=== PATIENT | female | born 1990 | race Caucasian/White ===

== ENCOUNTER 2018-01-19 11:58 | Emergency (ER) | payer OTHER ==
[~2018-01-19] VITALS: Ht 165.1 cm; Wt 68.0 kg
[~2018-01-19 11:58] MED LIST: ACEASPCAF PO; AMOX500 PO; CELEXA; CEPH500 PO; DOXY100T53 PO; HYDACE10B PO; HYDMOR2 PO; IBUP800 PO; LEVSOD25 PO; METR500 PO; MULVITMINE PO; NITR100CA PO; OXYACE5T PO; PROM25 PO; RXHYDACE PO; RXHYDMOR2 PO; RXOXYACE PO; RXPROM25 PO; SPIR25 PO; TRAM50 PO; XANAX
[2018-01-19] MEDS ORDERED: ALPR.5 PO (12:17)
[2018-01-19 12:39] LABS: Source, Urine Clean Catch
[2018-01-19 13:05] LABS: Bilirubin, Urine Neg (Neg); Blood, Urine 5+ (Neg); Glucose Qualitative, Urine Neg (Neg); Ketones, Urine Neg (Neg); Leukocyte Esterase, Urine 1+ (Neg); Nitrite, Urine Neg (Neg); Protein, Urine Neg (Neg); Urobilinogen, Urine NORM (Normal)
[2018-01-19 13:14] LABS: BASOPHILS ABSOLUTE AUTO 0.04 K/mm3 (0.00-0.23); BASOPHILS PERCENT AUTO 0 % (0-2); EOSINOPHILS ABSOLUTE AUTO 0.06 K/mm3 (0.00-0.68); EOSINOPHILS PERCENT AUTO 1 % (0-6); Hematocrit 38.9 % (33.0-51.0); Hemoglobin 12.3 g/dL (11.5-16.0); IMMATURE GRAN ABSOLUTE AUTO 0.03 K/mm3 (0.00-0.10); IMMATURE GRAN PERCENT AUTO 0 % (0-1); LYMPHOCYTES ABSOLUTE AUTO 1.53 K/mm3 (0.84-5.20); LYMPHOCYTES PERCENT AUTO 17 % (21-46); MONOCYTES ABSOLUTE AUTO 0.66 K/mm3 (0.16-1.47); MONOCYTES PERCENT AUTO 7 % (4-13); Mean Corpuscular HGB 28.8 pg (26.0-34.0); Mean Corpuscular HGB Conc 31.6 g/dL (31.5-36.5); Mean Corpuscular Volume 91 fL (80-100); Mean Platelet Volume 9.3 fL (9.1-12.4); NEUTROPHILS ABSOLUTE AUTO 6.83 K/mm3 (1.96-9.15); NEUTROPHILS PERCENT AUTO 75 % (41-73); Platelet Count 285 K/mm3 (150-400); RDW Coefficient Variation 14.4 % (11.7-14.2); RDW Standard Deviation 48.4 fL (35.1-46.3); Red Blood Cell Count 4.27 M/mm3 (3.80-5.20); White Blood Cell Count 9.15 K/mm3 (4.00-11.30)
[2018-01-19 13:25] LABS: Appearance, Urine Hazy (Clear); Color, Urine Yellow (P-Yellow)
[2018-01-19 13:27] LABS: Bacteria Few /hpf; Squamous Epithelial Cells Few /hpf (Few)
[2018-01-19 13:42] LABS: Alanine Aminotransfer (ALT/SGP 21 U/L (12-78); Albumin, Blood 3.8 g/dL (3.4-5.0); Alk Phos 55 U/L (50-136); Anion Gap 7 mmol/L (6-16); Aspartate Aminotrans (AST/SGOT 16 U/L (12-37); Beta HCG, Quantitative, Serum 395 mIU/mL (0-3); Bilirubin, Total 0.3 mg/dL (0.1-1.0); Blood Urea Nitrogen 7 mg/dL (8-24); Bun/Creatinine Ratio 14.3 (12.0-20.0); CO2, Blood 26 mmol/L (21-32); Calcium, Blood 8.5 mg/dL (8.5-10.1); Chloride, Blood 107 mmol/L (98-108); Creatinine, Blood 0.49 mg/dL (0.40-1.00); Glomerular Filtration Rate >60 (60-); Glucose, Blood 97 mg/dL (70-99); Potassium, Blood 3.8 mmol/L (3.5-5.5); Sodium, Blood 140 mmol/L (136-145); Total Protein, Blood 7.8 g/dL (6.4-8.2)
[2018-01-19] MEDS ORDERED: Macrodantin100 MG PO (15:07)
== END 2018-01-19 15:21 | disposition home or self-care (01) ==
LOC: ER 11:58
PROVIDERS: Emergency Medicine
DX: O23.41 Unspecified infection of urinary tract in pregnancy, first trimester (principal); O99.341 Other mental disorders complicating pregnancy, first trimester; F41.9 Anxiety disorder, unspecified; Z79.899 Other long term (current) drug therapy; Z87.891 Personal history of nicotine dependence; Z3A.01 Less than 8 weeks gestation of pregnancy
CPT/HCPCS: 36415; 76801; 80053; 81001; 84702; 85025; 86900; 86901; 87086; 99284

== ENCOUNTER 2018-02-08 18:57 | Emergency (ER) | payer OTHER ==
[~2018-02-08] VITALS: Ht 165.1 cm; Wt 65.8 kg
[~2018-02-08 18:57] MED LIST changes: +ALPR.5 PO; +Macrodantin100 MG PO
== END 2018-02-08 20:51 | disposition home or self-care (01) ==
LOC: ER 18:57
DX: B34.9 Viral infection, unspecified (principal); F17.210 Nicotine dependence, cigarettes, uncomplicated
CPT/HCPCS: 99282

== ENCOUNTER 2018-04-27 12:28 | Emergency (ER) | payer OTHER ==
[~2018-04-27] VITALS: Ht 165.1 cm; Wt 65.8 kg
[2018-04-27 14:13] LABS: Source, Urine Clean Catch
[2018-04-27 14:20] LABS: Chloride (POC) 103 mmol/L (98-108); Creatinine (POC) 0.5 mg/dL (0.6-1.0); Glucose (ISTAT POC) 104 mg/dL (70-99); Hemoglobin (POC) 12.9 g/dL (12.0-16.0); Potassium (POC) 3.6 mmol/L (3.5-5.5); Sodium (POC) 141 mmol/L (135-148); Total CO2 (POC) 26 mmol/L (21-32)
[2018-04-27 14:22] LABS: Bilirubin, Urine Neg (Neg); Blood, Urine Neg (Neg); Glucose Qualitative, Urine Neg (Neg); Ketones, Urine Neg (Neg); Leukocyte Esterase, Urine 2+ (Neg); Nitrite, Urine Neg (Neg); Protein, Urine Neg (Neg); Specific Gravity, Urine 1.015 (1.003-1.022); Urobilinogen, Urine NORM (Normal)
[2018-04-27 14:41] LABS: Appearance, Urine Hazy (Clear); Color, Urine Yellow (P-Yellow)
[2018-04-27 14:42] LABS: Red Blood Cells, Urine 0-2 /hpf (0-2)
[2018-04-27 14:43] LABS: Amorphous Light (0-Heavy); Bacteria Mod /hpf; Squamous Epithelial Cells Mod /hpf (Few)
[2018-04-27] MEDS ORDERED: Sudogest60 MG PO (15:22)
[2018-04-27] MEDS ORDERED: PROM25 PO (15:22)
== END 2018-04-27 15:37 | disposition home or self-care (01) ==
LOC: ER 12:28
PROVIDERS: Physician Assistant
DX: R11.2 Nausea with vomiting, unspecified (principal); R19.7 Diarrhea, unspecified; J32.9 Chronic sinusitis, unspecified; Z87.891 Personal history of nicotine dependence
CPT/HCPCS: 36415; 80047; 81001; 81025; 85014; 87086; 96361; 96374; 99283; J2550; J7120

== ENCOUNTER → 2019-10-28 | Outpatient (CLI) | payer OTHER ==
[~2019-10-28] MED LIST changes: +METR59TL; +PRENATAL TABLE1 EAC2 PO; +Sudogest60 MG PO
[2019-10-31 05:07] LABS: CHLAMYDIA TRACHOMATIS, NAA Negative (Negative); NEISSERIA GONORRHOEAE, NAA Negative (Negative)
== END | disposition home or self-care (01) ==
LOC: LAB 15:10 → LAB SHORT 15:10
PROVIDERS: Advanced Practice Midwife
DX: Z11.3 Encounter for screening for infections with a predominantly sexual mode of transmission (principal)
CPT/HCPCS: 87491; 87591

== ENCOUNTER 2019-11-12 17:39 | Observation (INO) | payer OTHER ==
[~2019-11-12] VITALS: Ht 165.1 cm; Wt 72.7 kg
[~2019-11-12 17:39] MED LIST changes: -METR59TL; -PRENATAL TABLE1 EAC2 PO
[2019-11-12 18:08] LABS: Source, Urine Clean Catch
[2019-11-12 18:19] LABS: Bilirubin, Urine Neg (Neg); Blood, Urine Neg (Neg); Color, Urine Yellow (P-Yellow); Glucose Qualitative, Urine Neg (Neg); Ketones, Urine Neg (Neg); Leukocyte Esterase, Urine 2+ (Neg); Nitrite, Urine Neg (Neg); Protein, Urine Neg (Neg); Urobilinogen, Urine NORM (Normal)
[2019-11-12 18:42] LABS: Appearance, Urine Clear (Clear); Bacteria Mod /hpf; Red Blood Cells, Urine Not Seen /hpf (0-2); Squamous Epithelial Cells Mod /hpf (Few); White Blood Cells, Urine 0-2 /hpf (0-5)
[2019-11-12 18:52] LABS: BASOPHILS ABSOLUTE AUTO 0.03 K/mm3 (0.00-0.23); BASOPHILS PERCENT AUTO 0 % (0-2); EOSINOPHILS ABSOLUTE AUTO 0.02 K/mm3 (0.00-0.68); EOSINOPHILS PERCENT AUTO 0 % (0-6); Hematocrit 31.8 % (33.0-51.0); Hemoglobin 9.4 g/dL (11.5-16.0); IMMATURE GRAN ABSOLUTE AUTO 0.04 K/mm3 (0.00-0.10); IMMATURE GRAN PERCENT AUTO 0 % (0-1); LYMPHOCYTES ABSOLUTE AUTO 1.77 K/mm3 (0.84-5.20); LYMPHOCYTES PERCENT AUTO 17 % (21-46); MONOCYTES ABSOLUTE AUTO 0.61 K/mm3 (0.16-1.47); MONOCYTES PERCENT AUTO 6 % (4-13); Mean Corpuscular HGB 23.2 pg (26.0-34.0); Mean Corpuscular HGB Conc 29.6 g/dL (31.5-36.5); Mean Corpuscular Volume 79 fL (80-100); Mean Platelet Volume 9.2 fL (9.1-12.4); NEUTROPHILS ABSOLUTE AUTO 8.05 K/mm3 (1.96-9.15); NEUTROPHILS PERCENT AUTO 77 % (41-73); Platelet Count 286 K/mm3 (150-400); RDW Coefficient Variation 23.3 % (11.7-14.2); RDW Standard Deviation 65.3 fL (35.1-46.3); Red Blood Cell Count 4.05 M/mm3 (3.80-5.20); White Blood Cell Count 10.52 K/mm3 (4.00-11.30)
[2019-11-12 19:50] LABS: Candida species (DNA Probe) Negative (NEGATIVE); G. vaginalis (DNA Probe) Positive (NEGATIVE); T. vaginalis (DNA Probe) Negative (NEGATIVE)
[2019-11-12] MEDS ORDERED: PRENATAL TABLE1 EAC2 PO (23:18)
--- NOTE | 2019-11-12 23:50 | NUR ---
NAUSEA PT NAUSEA IS GONE AND NO EMESIS CURRENTLY. PT STATES FEELING TIRED AND WOULD LIKE TO REST. PT DENIES ANY FURTHER NEEDS AT THIS TIME AND WILL CALL IF NEEDS ANYTHING.
--- NOTE | 2019-11-13 09:30 | NUR ---
SPOKE WITH DR HENSLEY. RX FOR BV CHANGED TO [facility]ROG[facility] SINCE THE FLAGYL IS MAKING PT SICK. PT IS READY TO GO. RX TO [facility] CALLED IN.
[2019-11-13] MEDS ORDERED: METR59TL (09:49)
== END 2019-11-13 10:00 | disposition home or self-care (01) ==
LOC: OBS 17:39 → BC 17:39 → OBS 23:11 → BC 23:12
PROVIDERS: ADMIT Family Medicine
DX: O21.9 Vomiting of pregnancy, unspecified (principal); Z3A.25 25 weeks gestation of pregnancy; O99.012 Anemia complicating pregnancy, second trimester
CPT/HCPCS: 36415; 76815; 81001; 85025; 87086; 87480; 87510; 87660; 96372; A9270-GY; G0378; J2550

== ENCOUNTER 2020-01-10 22:06 | Observation (INO) | payer OTHER ==
[~2020-01-10] VITALS: Ht 162.6 cm; Wt 78.1 kg
[~2020-01-10 22:06] MED LIST changes: +METR59TL; +PRENATAL TABLE1 EAC2 PO
[2020-01-10 22:50] LABS: BASOPHILS ABSOLUTE AUTO 0.03 K/mm3 (0.00-0.23); BASOPHILS PERCENT AUTO 0 % (0-2); EOSINOPHILS ABSOLUTE AUTO 0.01 K/mm3 (0.00-0.68); EOSINOPHILS PERCENT AUTO 0 % (0-6); Hematocrit 32.9 % (33.0-51.0); Hemoglobin 10.4 g/dL (11.5-16.0); IMMATURE GRAN ABSOLUTE AUTO 0.04 K/mm3 (0.00-0.10); IMMATURE GRAN PERCENT AUTO 0 % (0-1); LYMPHOCYTES ABSOLUTE AUTO 1.31 K/mm3 (0.84-5.20); LYMPHOCYTES PERCENT AUTO 13 % (21-46); MONOCYTES ABSOLUTE AUTO 0.65 K/mm3 (0.16-1.47); MONOCYTES PERCENT AUTO 6 % (4-13); Mean Corpuscular HGB 24.1 pg (26.0-34.0); Mean Corpuscular HGB Conc 31.6 g/dL (31.5-36.5); Mean Corpuscular Volume 76 fL (80-100); Mean Platelet Volume 9.1 fL (9.1-12.4); NEUTROPHILS ABSOLUTE AUTO 8.07 K/mm3 (1.96-9.15); NEUTROPHILS PERCENT AUTO 80 % (41-73); Platelet Count 287 K/mm3 (150-400); RDW Coefficient Variation 21.4 % (11.7-14.2); Red Blood Cell Count 4.31 M/mm3 (3.80-5.20); White Blood Cell Count 10.11 K/mm3 (4.00-11.30)
[2020-01-11] MEDS ORDERED: IRON150C PO (00:24)
--- NOTE | 2020-01-11 10:40 | NUR ---
RESTING IN BED. DENIES FEELING MANY CONTRACTIONS AND NO NEW BLEEDING SEEN.
--- NOTE | 2020-01-11 17:33 | NUR ---
PT SITTING UP IN CHAIR IN ROOM IN REGULAR CLOTHES. NO BLEEDING SEEN TODAY. STILL HAS A SLIGHT HEADACHE BUT NO COMPLAINTS. PLAN TO DC HOME AFTER SECOND DOSE OF BETAMETHASONE AT 1945 PER OLIVIA.
--- NOTE | 2020-01-11 18:26 | NUR ---
UP TO AMBULATE TO [place]. PT FEELING GOOD. NO BLEEDING SEEN. REPORT WILL BE GIVEN TO ONCOMING SHIFT. PT VERBALIZES UNDERSTANDING OF PLAN OF CARE.
== END 2020-01-11 19:59 | disposition home or self-care (01) ==
LOC: OBS 22:06 → BC 22:07 → OBS 22:38 → BC 22:39 → OBS 22:40 → BC 22:50 → OBS 22:50 → BC 01-11 19:59
PROVIDERS: ADMIT Advanced Practice Midwife
DX: O47.03 False labor before 37 completed weeks of gestation, third trimester (principal); O99.333 Smoking (tobacco) complicating pregnancy, third trimester; F17.200 Nicotine dependence, unspecified, uncomplicated; Z3A.34 34 weeks gestation of pregnancy
CPT/HCPCS: 36415; 59025; 81003; 85025; 86850; 86900; 86901; 87210; A9270; J0290; J0702; J2405; J7120

== ENCOUNTER 2020-01-26 10:35 | Inpatient (IN) | payer OTHER ==
[~2020-01-26] VITALS: Ht 165.1 cm; Wt 79.3 kg
[~2020-01-26 10:35] MED LIST changes: +IRON150C PO
[2020-01-26 11:21] LABS: BASOPHILS ABSOLUTE AUTO 0.03 K/mm3 (0.00-0.23); BASOPHILS PERCENT AUTO 0 % (0-2); EOSINOPHILS ABSOLUTE AUTO 0.04 K/mm3 (0.00-0.68); EOSINOPHILS PERCENT AUTO 0 % (0-6); Hemoglobin 10.7 g/dL (11.5-16.0); IMMATURE GRAN PERCENT AUTO 1 % (0-1); LYMPHOCYTES ABSOLUTE AUTO 1.48 K/mm3 (0.84-5.20); LYMPHOCYTES PERCENT AUTO 13 % (21-46); MONOCYTES ABSOLUTE AUTO 0.81 K/mm3 (0.16-1.47); MONOCYTES PERCENT AUTO 7 % (4-13); Mean Corpuscular HGB 23.8 pg (26.0-34.0); Mean Corpuscular HGB Conc 30.6 g/dL (31.5-36.5); Mean Corpuscular Volume 78 fL (80-100); Mean Platelet Volume 9.7 fL (9.1-12.4); NEUTROPHILS ABSOLUTE AUTO 9.25 K/mm3 (1.96-9.15); NEUTROPHILS PERCENT AUTO 79 % (41-73); Platelet Count 258 K/mm3 (150-400); RDW Coefficient Variation 21.4 % (11.7-14.2); RDW Standard Deviation 59.2 fL (35.1-46.3); Red Blood Cell Count 4.49 M/mm3 (3.80-5.20); White Blood Cell Count 11.71 K/mm3 (4.00-11.30)
[2020-01-26 14:50] LABS: PCO2 Cord - Arterial 55.5 mmHg (40-50); PO2 Cord - Arterial 17.3 mmHg (16-20); pH Cord - Arterial 7.26 (7.28-7.35)
[2020-01-26 14:54] LABS: PCO2 Cord - Venous 39.4 mmHg (40-50); PO2 Cord - Venous 24.9 mmHg (28-32); pH Umbilical Cord - Venous 7.39 (7.26-7.35)
[2020-01-27 06:04] LABS: BASOPHILS ABSOLUTE AUTO 0.03 K/mm3 (0.00-0.23); BASOPHILS PERCENT AUTO 0 % (0-2); EOSINOPHILS ABSOLUTE AUTO 0.07 K/mm3 (0.00-0.68); EOSINOPHILS PERCENT AUTO 1 % (0-6); Hematocrit 32.1 % (33.0-51.0); Hemoglobin 9.7 g/dL (11.5-16.0); IMMATURE GRAN ABSOLUTE AUTO 0.07 K/mm3 (0.00-0.10); IMMATURE GRAN PERCENT AUTO 1 % (0-1); LYMPHOCYTES ABSOLUTE AUTO 2.12 K/mm3 (0.84-5.20); LYMPHOCYTES PERCENT AUTO 17 % (21-46); MONOCYTES ABSOLUTE AUTO 0.94 K/mm3 (0.16-1.47); MONOCYTES PERCENT AUTO 8 % (4-13); Mean Corpuscular HGB Conc 30.2 g/dL (31.5-36.5); Mean Corpuscular Volume 79 fL (80-100); Mean Platelet Volume 9.7 fL (9.1-12.4); NEUTROPHILS ABSOLUTE AUTO 9.25 K/mm3 (1.96-9.15); NEUTROPHILS PERCENT AUTO 74 % (41-73); Platelet Count 214 K/mm3 (150-400); RDW Coefficient Variation 21.7 % (11.7-14.2); RDW Standard Deviation 60.5 fL (35.1-46.3); Red Blood Cell Count 4.05 M/mm3 (3.80-5.20); White Blood Cell Count 12.48 K/mm3 (4.00-11.30)
== END 2020-01-27 17:22 | disposition home or self-care (01) | DRG 807 ==
LOC: OBS 10:35 → BC 10:38 → OBS 10:47 → BC 20:20
PROVIDERS: ADMIT Obstetrics & Gynecology
PROC: 10E0XZZ Delivery of Products of Conception, External Approach (ICD-10-PCS; principal; 2020-01-26)
PROC: 10907ZC Drainage of Amniotic Fluid, Therapeutic from Products of Conception, Via Natural or Artificial Opening (ICD-10-PCS; 2020-01-26)
DX: O60.14X0 Preterm labor third trimester with preterm delivery third trimester, not applicable or unspecified (principal); Z37.0 Single live birth; Z3A.36 36 weeks gestation of pregnancy; O99.334 Smoking (tobacco) complicating childbirth; F17.210 Nicotine dependence, cigarettes, uncomplicated
CPT/HCPCS: 36415; 82803; 85025; 86850; 86900; 86901; J0290; J2210; J2590; J7120

== ENCOUNTER 2020-10-06 10:47 | Emergency (ER) | payer OTHER | END 2020-10-06 12:19 | disposition left against medical advice (07) | LOC: ER 10:47 | DX: Z53.21 Procedure and treatment not carried out due to patient leaving prior to being seen by health care provider (principal) ==

== ENCOUNTER 2022-10-21 05:25 | Emergency (ER) | payer OTHER | END 2022-10-21 08:15 | disposition left against medical advice (07) | DX: J10.1 Influenza due to other identified influenza virus with other respiratory manifestations (principal); M54.50 Low back pain, unspecified; Z20.822 Contact with and (suspected) exposure to COVID-19 ==

== ENCOUNTER → 2025-08-22 | Outpatient (CLI) | payer OTHER ==
[2025-08-22 14:51] LABS: BASOPHILS ABSOLUTE AUTO 0.08 K/mm3 (0.00-0.23); BASOPHILS PERCENT AUTO 1 % (0-2); EOSINOPHILS ABSOLUTE AUTO 0.19 K/mm3 (0.00-0.68); EOSINOPHILS PERCENT AUTO 2 % (0-6); Hematocrit 40.4 % (33.0-51.0); Hemoglobin 12.8 g/dL (11.5-16.0); IMMATURE GRAN ABSOLUTE AUTO 0.02 K/mm3 (0.00-0.10); IMMATURE GRAN PERCENT AUTO 0 % (0-1); LYMPHOCYTES ABSOLUTE AUTO 1.58 K/mm3 (0.84-5.20); LYMPHOCYTES PERCENT AUTO 19 % (21-46); MONOCYTES ABSOLUTE AUTO 0.60 K/mm3 (0.16-1.47); MONOCYTES PERCENT AUTO 7 % (4-13); Mean Corpuscular HGB Conc 31.7 g/dL (31.5-36.5); Mean Corpuscular Volume 81 fL (80-100); NEUTROPHILS ABSOLUTE AUTO 6.06 K/mm3 (1.96-9.15); NEUTROPHILS PERCENT AUTO 71 % (41-73); NRBC ABSOLUTE 0.00 K/mm3 (0.00-0.02); NRBC Auto 0.0 /100 WBC (0.0-0.2); Platelet Count 324 K/mm3 (150-400); RDW Coefficient Variation 16.7 % (11.7-14.2); RDW Standard Deviation 49.0 fL (35.1-46.3)
[2025-08-22 15:15] LABS: Alanine Aminotransfer (ALT/SGP 45.0 U/L (12-78); Albumin, Blood 3.8 g/dL (3.4-5.0); Albumin/Globulin Ratio 0.9 (0.8-1.8); Anion Gap 16.0 mmol/L (3-11); Aspartate Aminotrans (AST/SGOT 32.0 U/L (12-37); Bilirubin, Total 0.4 mg/dL (0.1-1.0); Blood Urea Nitrogen 8.0 mg/dL (8-24); CO2, Blood 25.0 mmol/L (21-32); Calcium, Blood 9.4 mg/dL (8.5-10.1); Chloride, Blood 105.0 mmol/L (98-108); Creatinine, Blood 0.63 mg/dL (0.40-1.00); Globulin, Blood 4.2 g/dL (2.2-4.0); Glucose, Blood 105.0 mg/dL (70-99); Magnesium, Blood 2.0 mg/dL (1.6-2.4); Potassium, Blood 4.0 mmol/L (3.5-5.5); Sodium, Blood 142.0 mmol/L (136-145); Thyroid Stimulating Hormone 2.16 uIU/mL (0.360-4.800); Total Protein, Blood 8.0 g/dL (6.4-8.2)
[2025-08-23 22:25] LABS: TRIIODOTHYRONINE,TOTAL T3 TTL 113 ng/dL (80-200)
== END ==
LOC: LAB 14:46 → LAB SHORT 14:46
PROVIDERS: Chiropractor
DX: E07.9 Disorder of thyroid, unspecified (principal); R00.0 Tachycardia, unspecified
CPT/HCPCS: 80053; 83735; 84439; 84443; 84480; 85025